=== PATIENT | female | born 1935 | race Caucasian/White ===

== ENCOUNTER → 2021-02-25 | Outpatient (CLI) | payer MEDICARE ==
--- NOTE | 2021-02-25 20:45 | RAD ---
Right knee 3 views: Reason for examination: Right knee pain. 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 No acute fracture or dislocation is evident. The bone densit y is normal. No abnormal periosteal reaction is seen. No joint effusion is evident. IMPRESSION: No acute abnormality evident at the right knee. Electronically signed by: Paula Gray MD (02/25/2021 8:43 PM) ADRIEL
== END ==
LOC: RAD 15:24
PROVIDERS: ATTEND Specialist
DX: M25.561 Pain in right knee (principal)
CPT/HCPCS: 73562

== ENCOUNTER → 2021-09-21 | Outpatient (CLI) | payer MEDICARE ==
--- NOTE | 2021-09-21 11:26 | RAD ---
EXAM: ULTRASOUND ABDOMINAL AORTA. HISTORY: Abdominal aortic aneurysm screening. Aortic ectasia. COMPARISON: None. FINDINGS: Sonographic evaluation of the abdominal aorta and common iliac arteries was performed. Proximally, the abdominal aorta measures 1.8 cm. In its midportion, 1.8, 1.7 cm. Distally, cm. The common iliac arteries are obscured due to bowel gas. IMPRESSION: No abdominal aortic aneurysm. Electronically signed by: Tegan Ragland MD (09/21/2021 11:23 AM) [id number]
== END ==
LOC: US 10:52
PROVIDERS: ATTEND Specialist
DX: I77.811 Abdominal aortic ectasia (principal)
CPT/HCPCS: 76770